=== PATIENT | female | born 1990 | race Caucasian/White ===

== ENCOUNTER 2019-11-06 10:08 | Emergency (ER) | payer MEDICAID ==
[2019-11-06] MEDS ORDERED: Ondansetron 4 MG/2 ML SDV IVPUSH ONE ×2 (11:37→12:58)
[2019-11-06] MEDS ORDERED: Sodium Chloride 0.9% 1,000 ML IV ONE (11:37)
[2019-11-06] MEDS ORDERED: Ondansetron 4 MG/2 ML SDV ONE ×2 (11:59→13:05)
[2019-11-06] MEDS ORDERED: LORazepam 2 MG/ML SDV IVPUSH ONE (12:34)
[2019-11-06] MEDS ORDERED: LORazepam 2 MG/ML SDV ONE (12:46)
[2019-11-06] MEDS ORDERED: Sodium Chloride 0.9% 1,000 ML IV SCH (13:05)
--- NOTE | 2019-11-06 16:40 | ER ---
HISTORY OF PRESENT ILLNESS: A 29-year-old female who comes to the ER with complaints of vomiting for 3 days. She states she has vomited many times. She does not feel good. She has almost constant nausea. Her throat has become sore from all the vomiting. The patient tells me that she has history of severe liver damage and she recently has been drinking alcohol. They are up here [place] of [place] and she decided to do some drinking. The patient has not been vomiting up blood. She states it is more bile in nature. She denies any problems with shortness of breath or headache and no problems with diarrhea. She has not had any falls or injuries. OBJECTIVE: GENERAL APPEARANCE: The patient is awake, she is slightly pale in appearance. VITAL SIGNS: Reviewed. She is afebrile. Blood pressure 122/78, O2 sats 100%, pulse is 85. HEENT: Oral mucous membranes are slightly dry. Posterior pharynx shows mild irritation. NECK: Supple. LUNGS: Clear. ABDOMEN: Soft with generalized discomfort with even light palpation. Bowel sounds are present and active. SKIN: Warm and dry. INITIAL TREATMENT: An IV was started. The patient was given 4 mg of Zofran IV and we started normal saline bolusing in 1 L of fluid. LABORATORY DATA: Labs include a CBC which has some subtle changes. Neutrophils are slightly elevated. Viral markers are low. Comprehensive metabolic panel shows AST is 122, ALT at 97, total bilirubin 3.0. Alcohol level is 0.30. COVID is negative. DIAGNOSES: 1. Alcohol intoxication with history of liver disease due to alcohol abuse. 2. Dehydration. TREATMENT PLAN: The patient was given Zofran one more time in the ER and we gave a second liter of fluids slower over the course of 2 hours. The patient was given Ativan 1 mg IV and over the course of the time she was here, her condition significantly improved. She did have a headache for a short time but that went away and after receiving 2 L of fluid, she states that she is feeling much better. The patient will be discharged home with Zofran to take sublingually as needed. For the next couple of days, she is to refrain from any alcohol use and stick to a soft bland diet for a day or two getting plenty of extra rest. Followup is p.r.n. CRS/MODL /[id number]
== END 2019-11-06 15:02 | disposition home or self-care (01) ==
LOC: LB.ED 10:08
DX: E86.0 Dehydration (principal); K70.9 Alcoholic liver disease, unspecified; F10.129 Alcohol abuse with intoxication, unspecified; Y90.8 Blood alcohol level of 240 mg/100 ml or more; Z20.828 Contact with and (suspected) exposure to other viral communicable diseases
CPT/HCPCS: 36415; 80053; 80307; 85025; 87635; 96361; 96374; 96375; 96376; 99284; J2060; J2405; J7030; U0002